=== PATIENT | female | born 1995 | race Caucasian/White ===

== ENCOUNTER 2018-09-24 15:57 | Emergency (ER) | payer MEDICAID, OTHER ==
[2018-09-24] MEDS: IBUPROFEN 600 MG TAB PO (17:16)
[2018-09-24] MEDS: CEFTRIAXONE 1 GM INJ IM (17:16)
[2018-09-24] MEDS: ACETAMINOPHEN 500 MG TAB PO (17:16)
[2018-09-24] MEDS: LIDOCAINE 1% (MPF) 5 ML VIAL INJ (17:17)
== END 2018-09-24 17:43 | disposition home or self-care (01) ==
LOC: FTE 15:57
DX: N61.0 Mastitis without abscess (principal)
CPT/HCPCS: 93005; 96372; 99284-25